=== PATIENT | female | born 1965 | race Caucasian/White ===

== ENCOUNTER 2018-06-20 13:14 | Inpatient (IN) | payer BC ==
--- NOTE | 2018-06-12 12:38 | HP ---
HISTORY AND PHYSICAL: DATE OF ADMISSION/SURGERY: 06/20/18 DATE OF OFFICE VISIT: 06/12/18 SURGEON: Nichole Suarez MD * (DICTATED BY ALYSE DO) PROCEDURE: Right total knee arthroplasty. CHIEF COMPLAINT: Right knee pain. HISTORY OF PRESENT ILLNESS: Ms. Fernandez is a 52-year-old female with continued complaints of right knee pain. She has failed conservative treatment and elected to proceed with a right total knee arthroplasty. PAST MEDICAL HISTORY: 1. Hypothyroidism. 2. High cholesterol. 3. GERD. 4. Sleep apnea. PAST SURGICAL HISTORY: 1. Appendectomy. 2. Hysterectomy. 3. Right shoulder arthroscopy. 4. Left knee scope. CURRENT MEDICATIONS: 1. Levothyroxine 112 mcg a day. 2. Pantoprazole sodium 40 mg a day. 3. Vitamin C. 4. MiraLAX. 5. Metamucil. 6. Vitamin D. 7. CBD oil. ALLERGIES: To MORPHINE causing muscle spasms; FLAGYL; HYDROCODONE, unknown reaction; SULFA ANTIBIOTICS; AMOXICILLIN. FAMILY HISTORY: Coronary artery disease, cancer, and diabetes. SOCIAL HISTORY: She is a 52-year-old female. She lives with her . She does not smoke or use drugs. Uses occasional alcohol. REVIEW OF SYSTEMS: A complete 14-point review of systems was reviewed with the patient. It was positive for GERD, hypothyroidism, and occasional palpitations. She denies history of DVT, PE, hepatitis, HIV, or anesthesia problems. PHYSICAL EXAMINATION GENERAL: She is well developed, well nourished, in no acute distress. VITAL SIGNS: She stands 5 feet 6 inches tall, weighs 258 pounds. Her blood pressure is 146/84, heart rate 68. HEENT: Normocephalic, atraumatic. NECK: Supple. No palpable lymph nodes. PULMONARY: The lungs are clear to auscultation bilaterally. CARDIO: Regular rate and rhythm. Strong S1, S2. ABDOMEN: Soft, nontender, nondistended. NEUROLOGICAL: She is alert and oriented x3. MUSCULOSKELETAL: Right lower extremity, the skin is intact. There are no open wounds or abrasions. There is moderate joint effusion of the right knee. She has some tenderness along the medial and lateral joint line. Range of motion is 10 to 100 degrees of flexion with patellofemoral crepitus. There is some significant MCL laxity. Her calf is soft and nontender. She is able to dorsiflex and plantarflex. Has a 2+ dorsalis pedis pulse. ASSESSMENT AND PLAN: Ms. Fernandez is a 52-year-old female with end-stage osteoarthritis of the right knee. She has failed conservative treatment and elected to proceed with a right total knee arthroplasty. The surgery is scheduled for 06/20/[address] Suarez discussed the risks and benefits of the surgery at today's visit and all of her questions were answered. She will follow with Dr. Suarez 2 weeks after the surgery. ALYSE DO [id number]/[facility] #: [id number] MTDD
[~2018-06-20 13:14] MED LIST: Acetaminophen IV 1GM/100ML * 1,000 MG/100 ML VIAL IVPB ONE; Buffered Lidocaine 1% SYRIN* 1 ML/SYRINGE INTRADERM ONE; Dexamethasone IV* 4 MG/ML 1 ML (4 MG) IV SLOW PU ONE; Gabapentin CAP(*) 300 MG PO ONE; Lactated Ringers 1000 ML Bag* 1,000 ML IV SCH; Tranexamic Acid 1,000 MG in NS 0.9% 50 ML* (outpatient use) IV SCH; celeCOXIB CAP* 200 MG PO ONE
--- OUTSIDE RECORDS SUMMARY | 2018-06-20 13:19 | XMS REPORT | Continuity of Care Document ---
:1965 External Reference #:[id number] Author Name Ida Webb Care Team Providers Name Role Phone Patient's Choice Primary Care Physician Unavailable Payers Date Identification Numbers Payment Provider Subscriber Effective: 2017 Policy Number: [id number] BS Facets Bebeto Hardwick PayID: [id number] [address] [address] [place] [address] Advance Directives Description No Information Available Problems Date Description Provider Status Onset: 05/07/2017 Localized, primary osteoarthritis Nichole Suarez M.D. Active Family History Date Family Member(s) Observation Comments General Diabetes General Heart Disease General Hypertension General Stroke General Cancer General Rheumatoid Arthritis Social History Type Date Description Comments Sex Unknown Lives With Spouse Occupation hairdresser ETOH Use Denies alcohol use Tobacco Use Start: Unknown Patient has never smoked Smoking Status Reviewed: 06/12/18 Patient has never smoked Exercise Type/Frequency Exercises sporadically Allergies, Adverse Reactions, Alerts Date Description Reaction Status Severity Comments 05/07/2017 Morphine Active 05/07/2017 Flagyl Active 05/07/2017 Hydrocodone Active 05/07/2017 Sulfa Antibiotics Active 05/07/2017 Amoxicillin Active Medications Medication Date Status Form Strength Qnty SIG Indications Ordering Provider Levothyroxine Active Tablets 112mcg 1 by Unknown Sodium 000 mouth every day Pantoprazole Active Solution 40mg 1 by Unknown Sodium 000 Rec mouth every day Vitamin C Active Unknown 000 Miralax Active Unknown 000 Metamucil Active Unknown 000 Vitamin D Active Unknown 000 CBD Oil Active Unknown 000 Meloxicam Hx Tablets 15mg 90tabs take 1 M25.561 Nichole 018 - tablet Erick, by [facility] 019 once daily Medications Administered in Office Medication Date Status Form Strength Qnty SIG Indications Ordering Provider Depomedrol Administered Injection Nichole 40MG 018 Charly Suarez Depomedrol Administered Injection Nichole 40MG 018 Charly Suarez Depomedrol Administered Injection Nichole 40MG 018 Chalry Suarez Depomedrol Administered Injection Nichole 40MG 018 Charly Suarez Immunizations Description No Information Available Vital Signs Date Vital Result Comment 06/12/2018 10:25am Height 66.5 inches 5'6.50" Weight 258.00 lb Heart Rate 68 /min BP Systolic 146 mmHg BP Diastolic 84 mmHg BMI (Body Mass Index) 41.0 kg/m2 05/27/2018 8:44am Height 66.5 inches 5'6.50" Weight 255.00 lb Heart Rate 64 /min BP Systolic 140 mmHg BP Diastolic 90 mmHg BMI (Body Mass Index) 40.5 kg/m2 03/18/2018 3:33pm Height 66.5 inches 5'6.50" Heart Rate 70 /min BP Systolic 130 mmHg BP Diastolic 80 mmHg Respiratory Rate 18 /min Pain Level 4 12/21/2017 9:25am Height 66.5 inches 5'6.50" Heart Rate 76 /min BP Systolic 128 mmHg BP Diastolic 72 mmHg Respiratory Rate 18 /min Body Temperature 98.0 F Pain Level 7 09/12/2017 11:04am Height 66.5 inches 5'6.50" Weight 259.00 lb Heart Rate 64 /min BP Systolic Sitting 124 mmHg BP Diastolic Sitting 76 mmHg Respiratory Rate 16 /min Pain Level 2 BMI (Body Mass Index) 41.2 kg/m2 06/11/2017 3:39pm Height 66.5 inches 5'6.50" Weight 261.00 lb BP Systolic 150 mmHg BP Diastolic 86 mmHg Body Temperature 98.2 F Pain Level 2 BMI (Body Mass Index) 41.5 kg/m2 05/07/2017 10:45am Height 66.5 inches 5'6.50" Weight 261.00 lb Heart Rate 76 /min BP Systolic 160 mmHg BP Diastolic 90 mmHg Body Temperature 97.4 F BMI (Body Mass Index) 41.5 kg/m2 Results Test Date Facility Test Result H/L Range Note Inr/Protime 06/12/2018 [facility] Inr 0.94 N 0.77-1.[address] [place] [address] [phone] Laboratory test 06/12/2018 [facility] Partial 33.4 seconds N 26.0-36.[address] [place] [address] PTT [phone] CBC Auto Diff 06/12/2018 [facility] White Blood 7.7 10^3/uL N 3.5-10.8 [place] [address] [phone] Red Blood Count 4.60 10^6/uL N 4.00-5.40 Hemoglobin 12.8 g/dL N 12.0-16.0 Hematocrit 38 % N 35-47 Mean Corpuscular Volume 83 fL N 80-97 Mean Corpuscular Hemoglobin 28 pg N 27-31 Mean Corpuscular HGB Conc 33 g/dL N 31-36 Red Cell Distribution Width 14 % N 10.5-15 Platelet Count 339 10^3/uL N 150-450 Mean Platelet Volume 7.8 fL N 7.4-10.4 Abs Neutrophils 4.8 10^3/uL N 1.5-7.7 Abs Lymphocytes 2.2 10^3/uL N 1.0-4.8 Abs Monocytes 0.5 10^3/uL N 0-0.8 Abs Eosinophils 0.1 10^3/uL N 0-0.6 Abs Basophils 0.1 10^3/uL N 0-0.2 Abs Nucleated RBC 0 10^3/uL Granulocyte % 62.8 % Lymphocyte % 28.3 % Monocyte % 6.7 % Eosinophil % 1.5 % Basophil % 0.7 % Nucleated Red Blood Cells % 0 Urinalysis Profile 06/12/2018 [facility] Urine Color Yellow [address] [place] [address] [phone] Urine Appearance Clear Urine Specific [place] 1.006 Low 1.010-1.030 Urine pH 6.0 N 5-9 Urine Urobilinogen Negative Negative Urine Ketones Negative Negative Urine Protein Negative Negative Urine Leukocytes Negative Negative Urine Blood Negative Negative * * Abnormal Negative 1 Urine Nitrite Negative Negative Urine Bilirubin Negative Negative Urine Glucose Negative Negative Comp Metabolic Panel 06/12/2018 [facility] Sodium 142 mmol/L N 135-[address] [place] [address] [phone] Potassium 4.0 mmol/L N 3.5-5.0 Chloride 105 mmol/L N 101-111 Co2 Carbon Dioxide 31 mmol/L N 22-32 Anion Gap 6 mmol/L N 2-11 Glucose 96 mg/dL N 70-100 Blood Urea Nitrogen 9 mg/dL N 6-24 Creatinine 0.69 mg/dL N 0.51-0.95 BUN/Creatinine Ratio 13.0 N 8-20 Calcium 9.8 mg/dL N 8.6-10.3 Total Protein 6.9 g/dL N 6.4-8.9 Albumin 4.5 g/dL N 3.2-5.2 Globulin 2.4 g/dL N 2-4 Albumin/Globulin Ratio 1.9 N 1-3 Total Bilirubin 0.30 mg/dL N 0.2-1.0 Alkaline Phosphatase 58 U/L N 34-104 Alt 18 U/L N 7-52 Ast 14 U/L N 13-39 Egfr Non- 90.1 >60 Egfr 109.0 >60 2 Type & Screen 06/12/2018 [facility] Patient Blood Type O Positive [address] [place] [address] [phone] Antibody Screen NEGATIVE Urine Culture And 06/12/2018 [facility] Urine Culture SEE RESULT [address] [place] [address] [phone] 1 *Ascorbic acid is present which may interfere with detection of blood. 2 Because ethnic data is not always readily available, this report includes an eGFR for both -Americans and non- Americans. The National Kidney Disease Education Program (NKDEP) does not endorse the use of the MDRD equation for patients that are not between the ages of 18 and 70, are , have extremes of body size, muscle mass, or nutritional status, or are non- or non-. According to the National Kidney Foundation, irrespective of diagnosis, the stage of the disease is based on the level of kidney function: Stage Description GFR(mL/min/1.73 m(2)) 1 Kidney damage with normal or decreased GFR 90 2 Kidney damage with mild decrease in GFR 60-89 3 Moderate decrease in GFR 30-59 4 Severe decrease in GFR 15-29 5 Kidney failure <15 (or dialysis) 3 SEE RESULT BELOW Name: RAFFY FERNANDEZ : [address]: Nichole Suarez MD Acct: [id number] Unit: [id number] AGE: 52 Location: [facility] Re06/12/18 SEX: F Status: REG REF SPEC: [id number] ARNEL: 06/12/[address] [facility] [address]: Nichole Suarez MD REQ: [id number] RECD: 06/12/18 STATUS: COMP _ SOURCE: URINE SPDESC: ORDERED: Urine Culture QUERIES: Urine Source: Clean Catch Procedure Result Reported Site Urine Culture Final 06/13/18- 1229 ML No growth of clinically significant organisms * ML - Main Lab . END OF REPORT DEPARTMENT OF PATHOLOGY, [address] [place] [address] Peng Hilario M.D. Director [facility] # [id number] Procedures Date Code Description Status 03/18/201850877 Inject/Drain Joint/Bursa Major W/O US Completed 12/21/201737411 Inject/Drain Joint/Bursa Major W/O US Completed 09/12/201783195 Inject/Drain Joint/Bursa Major W/O US Completed 06/11/201714218 Inject/Drain Joint/Bursa Major W/O US Completed Encounters Type Date Location Provider Dx Diagnosis Office Visit 05/27/2018 [facility] Nichole Suarez, M25.562 Pain in left knee 8:30a [facility] M25.561 Pain in right knee M25.462 Effusion, left knee M25.461 Effusion, right knee M17.0 Bilateral primary osteoarthritis of knee M21.062 Valgus deformity, not elsewhere classified, left knee M21.061 Valgus deformity, not elsewhere classified, right knee Office Visit 06/11/2017 3:30p Orthopedic Nichole M17.0 Bilateral primary [facility] oste[facility] knee M21.061 Valgus deformity, not elsewhere classified, right knee M21.062 Valgus deformity, not elsewhere classified, left knee M25.461 Effusion, right knee M25.462 Effusion, left knee Office Visit 05/07/2017 9:00a Orthopedic Nichole M17.0 Bilateral primary [facility] osteoarthritis of [facility] knee M21.061 Valgus deformity, not elsewhere classified, right knee M21.062 Valgus deformity, not elsewhere classified, left knee M25.461 Effusion, right knee M25.462 Effusion, left knee E66.01 Morbid (severe) obesity due to excess calories Plan of Treatment Future Appointment(s):07/01/2018 1:00 pm - Nichole Suarez M.D. at [facility].06/20/2018 5:00 pm - UDAY Hamilton at [facility].06/20/2018 5:00 pm - ALYSE Doshi at [facility].06/20/2018 5:00 pm - Nichole Suarez M.D. at [facility]06/12/2018 - Nichole Suarez M.D.M25.562 Pain in left kneeFollow up:Follow up: 2 weeks after [id number] Effusion, right kneeM17.0 Bilateral primary osteoarthritis of kneeM21.061 Valgus deformity, not elsewhere classified, right knee
--- OUTSIDE RECORDS SUMMARY | 2018-06-20 13:19 | XMS REPORT | Continuity of Care Document ---
:1965 External Reference #:[id number] Author Name Faith Gardner Care Team Providers Name Role Phone Patient's Choice Primary Care Physician Unavailable Payers Date Identification Numbers Payment Provider Subscriber Effective: 2017 Policy Number: [id number] [employer] Bebeto Hardwick PayID: [id number] [address] [address] [place] [address] Advance Directives Description No Information Available Problems [...] BMI (Body Mass Index) 41.5 kg/m2 Results Description No Information Available Procedures Date Code Description Status 03/18/2018 Inject/Drain Joint/Bursa Major W/O US Completed 12/21/2017 Inject/Drain Joint/Bursa Major W/O US Completed 09/12/2017 Inject/Drain Joint/Bursa Major W/O US Completed 06/11/2017 Inject/Drain Joint/Bursa Major W/O US Completed Encounters Type Date Location Provider Dx Diagnosis Office Visit 05/27/2018 [facility]opedic Nichole Suarez, M25.562 Pain in left knee 8:30a [facility] M25.561 Pain in right knee M25.462 [...] Nichole Suarez M.D. at [facility]06/20/2018 5:00 pm - UDAY Hamilton at [facility]06/20/2018 5:00 pm - ALYSE Doshi at [facility]06/20/2018 5:00 pm - Nich[facility] Suarez [facility]2018 - Nichole Suarez M.D.M25.562 Pain in left kneeFollow up:Follow up: 2 weeks after [id number] Effusion, right kneeM17.0 Bilateral primary osteoarthritis of kneeM21.061 Valgus deformity, not elsewhere classified, right knee
[2018-06-20] MEDS ORDERED: KETAMINE HCL* 50 MG/ML 10 ML VIAL ONE (13:29)
[2018-06-20] MEDS ORDERED: Propofol* 10 MG/ML 20 ML BTL ONE (13:29)
[2018-06-20] MEDS ORDERED: fentaNYL* 50 MCG/ML 2 ML VIAL (100 MCG VIAL) ONE (13:29)
[2018-06-20] MEDS ORDERED: Ondansetron INJ* 2 MG/ML VIAL ONE (13:29)
[2018-06-20] MEDS ORDERED: Midazolam* 1 MG/ML 5 ML VIAL (5 MG) ONE (13:29)
[2018-06-20] MEDS ORDERED: Gabapentin CAP(*) 300 MG ONE (13:54)
[2018-06-20] MEDS ORDERED: Dexamethasone IV* 4 MG/ML 1 ML (4 MG) ONE (13:54)
[2018-06-20] MEDS ORDERED: celeCOXIB CAP* 100 MG ONE (13:54)
[2018-06-20] MEDS ORDERED: Clindamycin 900 MG/D5W BAG(*) 900 MG/50 ML BAG IVPB ONE (13:54)
[2018-06-20] MEDS ORDERED: Buffered Lidocaine 1% SYRIN* 1 ML/SYRINGE INTRADERM ONE (13:55)
[2018-06-20] MEDS ORDERED: Acetaminophen IV 1GM/100ML * 100 ML ONE (14:16)
[2018-06-20] MEDS ORDERED: ROPIVACAINE 5 MG/ML 30 ML BTL (0.5%) ONE (14:45)
[2018-06-20] MEDS ORDERED: Bupivacaine 0.5%* 50 ML VIAL ONE (14:48)
[2018-06-20] MEDS ORDERED: Bupivacaine 0.5% SDV PF* 30ML VIAL ONE (14:50)
[2018-06-20] MEDS ORDERED: HYDROmorphone INJ1* 1 MG/ML SYRINGE IV PRN (17:19)
[2018-06-20] MEDS ORDERED: fentaNYL* 50 MCG/ML 2 ML VIAL (100 MCG VIAL) IV PRN (17:19)
[2018-06-20] MEDS ORDERED: DiMENhydriNATE IV* 50 MG/ML VIAL IV PUSH PRN (17:19)
[2018-06-20] MEDS ORDERED: Naloxone* 0.4 MG/ML 1 ML VIAL IV PRN (17:19)
[2018-06-20] MEDS ORDERED: Ondansetron INJ* 2 MG/ML VIAL IV PRN ×2 (17:19→18:01)
[2018-06-20] MEDS ORDERED: diPHENhydraMINE IV* 50 MG/ML 1 ml VIAL (BENADRYL) IV PRN (18:01)
[2018-06-20] MEDS ORDERED: Bisacodyl SUPP* 10 MG SUPP PR PRN (18:01)
[2018-06-20] MEDS ORDERED: Polyethylene Glycol 3350* 17 GM PACKET PO PRN (18:01)
[2018-06-20] MEDS ORDERED: Ondansetron TAB* 4 MG PO PRN (18:01)
[2018-06-20] MEDS ORDERED: Magnesium Hydroxide LIQ* 30 ML UDC PO PRN (18:01)
[2018-06-20] MEDS ORDERED: oxyCODONE/Acetamin 5/325 MG* TAB PO PRN (18:01)
[2018-06-20] MEDS ORDERED: HYDROmorphone INJ1* 1 MG/ML SYRINGE IV SLOW PU PRN (18:05)
[2018-06-20] MEDS ORDERED: Lactated Ringers 1000 ML Bag* 1,000 ML IV SCH (19:00)
[2018-06-20] MEDS: Acetaminophen TAB* 325 MG PO SCH (22:10)
[2018-06-20] MEDS: Docusate CAP* 100 MG PO SCH (22:14)
[2018-06-20] MEDS: Magnesium Hydroxide LIQ* 30 ML UDC PO SCH (22:14)
[2018-06-20] MEDS: Clindamycin 600 MG IVPREMIX(* 600 MG/50 ML SDV IV SCH (23:44)
[2018-06-20] MEDS: traMADol TAB* 50 MG PO PRN (23:47)
[2018-06-21] MEDS: oxyCODONE TAB* 5 MG TAB PO PRN ×2 (01:34→15:27)
[2018-06-21] MEDS: Cyclobenzaprine TAB* 10 MG PO PRN ×2 (01:34→10:17)
[2018-06-21] MEDS: oxyCODONE/Acetamin 5/325 MG* TAB PO PRN ×2 (03:27→08:04)
[2018-06-21] MEDS ORDERED: Levothyroxine TAB* 112 MCG TAB PO SCH (06:00)
[2018-06-21] MEDS: traMADol TAB* 50 MG PO PRN ×2 (06:21→12:25)
[2018-06-21 06:36] LABS: Hematocrit 38 % (35-47); Hemoglobin 12.6 g/dl (12.0-16.0); Mean Platelet Volume 7.9 fL (7.4-10.4); Platelet Count 324 10^3/ul (150-450)
[2018-06-21] MEDS: Acetaminophen TAB* 325 MG PO SCH ×2 (06:46→15:25)
[2018-06-21 06:57] LABS: Calcium 9.6 mg/dL (8.6-10.3); Potassium 3.8 mmol/L (3.5-5.0)
[2018-06-21 07:02] LABS: BUN/Creatinine Ratio 17.5 (8-20)
[2018-06-21] MEDS: Magnesium Hydroxide LIQ* 30 ML UDC PO SCH (07:44)
[2018-06-21] MEDS: Docusate CAP* 100 MG PO SCH (07:44)
[2018-06-21] MEDS: Clindamycin 600 MG IVPREMIX(* 600 MG/50 ML SDV IV SCH (07:59)
[2018-06-21] MEDS ORDERED: Pantoprazole TAB * 40 MG TAB PO SCH (09:00)
[2018-06-21] MEDS ORDERED: Apixaban* 2.5 MG TAB PO SCH (09:00)
--- NOTE | 2018-06-21 09:46 | OP ---
OPERATIVE REPORT: DATE OF OPERATION: 06/20/18 DATE OF : [birth year] ATTENDING SURGEON: Nichole Suarez MD. CHIEF DIETITIAN: ALYSE Prieto. Ms. Crane did help throughout the procedure with preparation of the leg, wound retraction, manipul ation of the knee, and wound closure. ANESTHESIOLOGIST: Dr. Martin. ANESTHESIA: Spinal. PRE-OP DIAGNOSIS: Severe end-stage degenerative osteoarthritis of the right knee joint with valgus d eformity. POST-OP DIAGNOSIS: Severe end-stage degenerative osteoarthritis of the right knee joint with valgus deformity. OPERATIVE PROCEDURE: Right total knee arthroplasty. TOURNIQUET TIME: 64 minutes. COMPLICATIONS: None. ESTIMATED BLOOD LOSS: 200 cc. SPECIMENS: Bone and cartilage from the right knee joint sent to Pathology. HARDWARE: This is cemented [employer] total knee arthroplasty hardware. Two packages of Simple x bone cement. For the femur, a size 5 right narrow Oxinium Legion posterior stabilized femoral comp onent. For the tibia, a size 3, right Michelle II tibial baseplate. For the insert, an 11-mm constra ined articular insert, size 3/4. For the patella, a 29-mm, 3-peg all-poly patella. BRIEF HISTORY/INDICATIONS: Ms. Fernandez is a 52-year-old female with years of increasingly severe righ t knee pain and valgus deformity. She developed instability in the knee due to MCL laxity. Radiogra ph showed [id number] arthritis. She failed conservative treatment with antiinflammatories, pain me dication, intra-articular injection, and physical therapy. Due to continued pain and decreased quali ty of life, she elected to undergo right total knee arthroplasty. Informed consent was obtained from the patient. She understood the risks of surgery included, but were not limited to, bleeding, infec tion, damage to nearby structures, continued pain, need for further surgery, intraoperative fracture, nerve palsy, hardware failure or loosening, knee stiffness, loss of motion, stroke, heart attack, bl ood clot, and . She wished to proceed. The patient understood because of her young age and mor bid obesity, she was at increased risk of early loosening. She accepted this risk. INTRAOPERATIVE FINDINGS: Intraoperatively, the patient was noted to have preop valgus deformity of 2 0 degrees. This was corrected by 13 degrees intraoperatively. The patient was noted to have a comple te loss of cartilage in the lateral and patellofemoral compartment. DESCRIPTION OF PROCEDURE: Ms. Fernandez was identified in the preanesthesia unit. Her right lower extre mity was marked as the correct operative site. Informed consent was signed and placed in the chart. The patient was taken to the operating room and placed under spinal anesthesia. A Mejía catheter wa s placed. Tourniquet was placed on the right thigh. Right lower extremity was prepped and draped in the usual sterile fashion. Preop time-out was made to correctly identify the patient's side and sit e. Appropriate perioperative antibiotics were given within 1 hour of incision. Tourniquet was inflated and total tourniquet time for this procedure was 64 minutes. A midline incis ion was made with a 10 blade and carried down to the extensor mechanism. New 10 blade was used to ma ke a standard medial parapatellar arthrotomy. The patella was subluxed laterally. The knee was flex ed up. The anterior horn of the lateral meniscus and ACL were sharply released. A drill was used to enter the distal femur. Intramedullary distal femoral cutting guide was pinned on the distal femur. Oscillating saw was used to make the distal femoral cut. Next, the external rotation guide was pin kristopher on the distal femur. Distal femur was sized to a size 5. Size 5 multi-cutting jig was pinned on the distal femur. Oscillating saw was used to make the appropriate 4 chamfer cuts. The tibia was subluxed anteriorly. The PCL was completely released. Extramedullary tibial cutting gu pedrito was pinned on the proximal tibia. Oscillating saw was used to make the proximal tibial cut perpe ndicular to the mechanical aspect of the tibia. The bone was carefully removed. The knee was tesha t out into full extension. There was some lateral ligamentous tightness. Electrocautery was used to release the posterolateral capsule. Pie-crusting technique was used to release some of the lateral ligament. Medial and lateral ligamentous balancing was much improved. Flexion and extension gaps w ere well balanced. The knee was flexed up. Lamina investment analyst was placed both medially and laterally. Any remaining meniscus was carefully removed using electrocautery. Curved osteotome was used to robin ve any posterior osteophytes. Tibial tray and drop carine were placed and once again confirmed a satisf actory tibial cut. A size 5 right narrow femoral trial was impacted onto the distal femur and had excellent fit and stab ility. The box for the posterior stabilized implant was prepared using a reamer and box-cut osteotom e. A size 3 tibial tray trial with an 11-mm insert trial was placed. The knee was taken through a r kathy of motion. The knee had full extension to 130 degrees of flexion with satisfactory patellofemor al tracking. The patella was everted. 9 mm of patellar bone and cartilage were carefully removed us ing an oscillating saw. The patella was sized to a size 29. Three-peg holes were drilled through the size 29 guide. A 29 trial patella was placed and the knee was taken through a range of motion. The re was satisfactory patellofemoral tracking. All trials were carefully removed. The tibia was sublu xed anteriorly and sized to a size 3. Proximal tibia was prepared using a size 3 keel punch. All lien ny cut surfaces were copiously irrigated with sterile saline and dried. Final implants were cemented into place starting with the tibia, followed by the femur, and last the patella. A 11-mm insert tri al was placed and the knee was brought out in full extension. Tourniquet was turned down at 64 minut es. Electrocautery was used to obtain meticulous hemostasis. The knee was copiously irrigated with sterile saline. Once the cement had fully cured, the insert trial was removed. Any excess cement was removed from ar ound the capsule and hardware. Final insert chosen was an 11-mm posterior stabilized articular inser t size 3-4. This was locked into position on the tibial tray. Stability of the insert was checked a nd rechecked and noted to be stable. The extensor mechanism was closed using interrupted #1 Vicryls. The rest of the incision was closed in a layered fashion using 0 and 2-0 Vicryls. Skin was closed using running 3-0 nylon suture. Sterile Xeroform, 4x4s, and Webril were used to cover the incision. Itz wrap and cold pack were placed over this. The patient's anesthesia was reversed without diffic ulty. She was taken to the PACU in stable condition. Intended weightbearing will be weightbearing a s tolerated. [id number]/[facility] #: [id number]
--- NOTE | 2018-06-21 13:01 | PN ---
Progress Note - Progress Note Date of Service: 06/21/18 SOAP: Subjective: []Patient seen OOB in chair. Having some nausea after pain med this am. No vomiting. Denies SOB, CP, palpitations. Did well with therapy. Hopes to still go home this afternoon. Objective: [] Vital Signs Temp 98.0 F 06/21/18 11:46 Pulse 59 06/21/18 11:46 Resp 18 06/21/18 12:25 BP 115/55 06/21/18 11:46 Pulse Ox 97 06/21/18 11:46 Intake & Output 06/20/18 06/21/18 06/21/18 18:59 06:59 18:59 Intake Total 1500 2100 1121 Output Total 1000 2050 500 Balance 500 50 621 Weight 252 lb 9.6 oz Intake: IV Fluids 1500 1121 ABX - CLINDAMYCIN 111 LR 1500 1010 IVPB 0 ABX - CLINDAMYCIN 0 Oral 2100 Output: Urine 500 Mejía 1000 0 Other: # Bowel Movements 1 Estimated Stool Amount Large Laboratory Results - last 24 hr 06/21/18 06/21/18 06:24 06:24 Hgb 12.6 Hct 38 Plt Count 324 MPV 7.9 Sodium 138 Potassium 3.8 Chloride 104 Carbon Dioxide 27 Anion Gap 7 BUN 11 Creatinine 0.63 Est GFR ( Amer) 121.0 Est GFR (Non-Af Amer) 100.0 BUN/Creatinine Ratio 17.5 Glucose 138 H Calcium 9.6 right knee dressings are dry and intact calf NT and soft +DF right ankle sensation and circulation intact Assessment: s/p right total knee arthroplasty POD #1 Plan: []PT/OT WBAT RLE Home this afternoon after PT session Eliquis 2.5 BID unless not covered by insurance, then may need to change to Lovenox Follow up 10-14 days as scheduled
[2018-06-21 16:30] VITALS: BP 117/94
--- NOTE | 2018-06-21 22:24 | DS ---
DISCHARGE SUMMARY: DATE OF ADMISSION: 06/20/18 DATE OF DISCHARGE: 06/21/18 ATTENDING PHYSICIAN: Dr. Nichole Suarez.* (DICTATED BY ALYSE PARADA) ADMISSION DIAGNOSIS: Severe end-stage degenerative osteoarthritis right knee with valgus deformity. DISCHARGE DIAGNOSES: Severe end-stage degenerative osteoarthritis right knee with valgus deformity. SURGERY PERFORMED: Right total knee arthroplasty. HOSPITAL COURSE: The patient is a 52-year-old female with years of increasingly severe right knee pain and valgus deformity. She developed instability with MCL laxity. Her x-rays revealed [id number] osteoarthritis. She failed conservative management with anti-inflammatories, pain medication, intraarticular cortisone injections, and physical therapy. Due to decreased quality of life and increased pain, she elected to proceed with right total knee arthroplasty. She was taken to the operating room under the care of Dr. Nichole Suarez on the date of 06/20/18 for the aforementioned procedure. She tolerated the procedure and left the operating room in stable condition. Postoperatively, she progressed satisfactorily with physical therapy and occupational therapy goals, bearing weight as tolerated on the right lower extremity. She had no postoperative complications and was found to be stable for discharge to home on the date of 06/21/18. CONDITION ON DISCHARGE: Temperature is 98, pulse 59, respiratory rate 16, O2 sats 97% on room air, blood pressure 115/55. Her knee was healing without evidence of infection. Her calf was soft and nontender. Her neurovascular status intact distally with the ability to actively dorsiflex the right ankle without pain. PLAN: She will be discharged to home on 06/21/18, bearing weight as tolerated on the right lower extremity. Her Eliquis prescribed in the hospital was unable to be covered by her insurance, therefore she was transitioned to Lovenox 40 mg subcu q.24 hours for 30 days postoperatively. She will use Percocet 5/325 one to two tablets p.o. q.4 hours p.r.n. pain, #70 with an MDD of 10. She was also prescribed Flexeril 10 mg p.o. t.i.d. as needed for muscle spasm. She will follow up in the office as scheduled with Dr. Suarez in roughly 10 to 14 days. All questions were answered. ALYSE PARADA [id number]/[facility] #: [id number] KERLINE
== END 2018-06-21 17:00 | disposition home or self-care (01) | DRG 302 ==
LOC: AA 13:14 → SSU 21:16
PROVIDERS: ADMIT Orthopaedic Surgery Adult Reconstructive Orthopaedic Surgery; ATTEND Orthopaedic Surgery Adult Reconstructive Orthopaedic Surgery
PROC: 0SRC069 Replacement of Right Knee Joint with Oxidized Zirconium on Polyethylene Synthetic Substitute, Cemented, Open Approach (ICD-10-PCS; principal; 2018-06-20 16:15)
DX: M17.11 Unilateral primary osteoarthritis, right knee (principal); Z68.41 Body mass index [BMI] 40.0-44.9, adult; M21.061 Valgus deformity, not elsewhere classified, right knee; E03.9 Hypothyroidism, unspecified; E78.00 Pure hypercholesterolemia, unspecified; K21.9 Gastro-esophageal reflux disease without esophagitis; G47.30 Sleep apnea, unspecified; M25.761 Osteophyte, right knee; M25.461 Effusion, right knee; E66.9 Obesity, unspecified; E04.2 Nontoxic multinodular goiter; Z90.710 Acquired absence of both cervix and uterus; Z88.5 Allergy status to narcotic agent; Z88.1 Allergy status to other antibiotic agents; Z88.2 Allergy status to sulfonamides; Z88.0 Allergy status to penicillin; Z82.49 Family history of ischemic heart disease and other diseases of the circulatory system; Z83.3 Family history of diabetes mellitus; Z72.89 Other problems related to lifestyle; Z87.891 Personal history of nicotine dependence; Z80.8 Family history of malignant neoplasm of other organs or systems; Z82.61 Family history of arthritis
CPT/HCPCS: 36415; 80048; 85014; 85018; 85049; A9270-GY; C1776; J1100; J1170; J2250; J2405; J2704; J2795; J3010

== ENCOUNTER 2018-11-24 10:57 | Emergency (ER) | payer BC ==
[2018-11-24 11:13] VITALS: BP 146/80
[2018-11-24] MEDS ORDERED: Ibuprofen TAB* 600 MG PO ONE (11:22)
--- NOTE | 2018-11-24 11:32 | UC ---
Shoulder Pain HPI - HPI Summary HPI Summary: 53 yo female CC lt shoulder pain. Started last PM after pulling a wagon with a grandchild in it. No specific trauma. Pain worst in the lt shoulder joint. Worse with ROM and palpation. Ibuprofen last PM helped some. No weakness, numbness. - History of Current Complaint Chief Complaint: UCUpperExtremity Stated Complaint: LT SHOULDER COMPLAINT Time Seen by Provider: 11/24/18 11:08 Hx Last Menstrual Period: N/A Pain Intensity: 7 - Allergies/Home Medications Allergies/Adverse Reactions: Allergies Allergy/AdvReac Type Severity Reaction Status Date / Time amoxicillin Allergy Unknown Verified 11/24/18 11:06 Reaction Details hydrocodone Allergy Unknown Verified 11/24/18 11:06 Reaction Details metronidazole [From Flagyl] Allergy Shortness Verified 11/24/18 11:06 of Breath morphine Allergy body Verified 11/24/18 11:06 tenses up SULFA DRUGS Allergy MOUTH SORES Uncoded 11/24/18 11:06 PMH/Surg Hx/FS Hx/Imm Hx Previously Healthy: Yes Endocrine History: Hypothyroidism - Surgical History Surgical History: Yes Surgery Procedure, Year, and Place: HYSTERECTOMY, BONE SPURS LT SHOULDER. RIGHT KNEE - Family History Known Family History: Positive: Non-Contributory - Social History Alcohol Use: Occasionally Substance Use Type: None Smoking Status (MU): Former Smoker Type: Cigarettes Amount Used/How Often: 1 PPD X 25 YEARS Length of Time of Smoking/Using Tobacco: about 20 years Have You Smoked in the Last Year: No When Did the Patient Quit Smoking/Using Tobacco: 2008 - Immunization History Most Recent Influenza Vaccination: NONE Most Recent Pneumonia Vaccination: HAS NOT HAD Review of Systems All Other Systems Reviewed And Are Negative: Yes Constitutional: Positive: Negative Skin: Positive: Negative Eyes: Positive: Negative ENT: Positive: Negative Respiratory: Positive: Negative Cardiovascular: Positive: Negative Gastrointestinal: Positive: Negative Motor: Positive: Other - see hpi Neurovascular: Positive: Negative Musculoskeletal: Positive: Other: - see hpi Neurological: Positive: Negative Psychological: Positive: Negative Is Patient Immunocompromised?: No Physical Exam Triage Information Reviewed: Yes Appearance: Well-Appearing, Well-Nourished, Pain Distress - Mild with lt ROM Vital Signs: Initial Vital Signs Temp 96.7 F 11/24/18 11:07 Pulse 62 11/24/18 11:07 Resp 16 11/24/18 11:07 BP 146/80 11/24/18 11:07 Pulse Ox 100 11/24/18 11:07 Vital Signs Reviewed: Yes Eye Exam: Normal Eyes: Positive: Conjunctiva Clear Neck: Positive: Supple, Nontender Respiratory: Positive: Lungs clear, Normal breath sounds, No respiratory distress Cardiovascular: Positive: RRR Musculoskeletal: Positive: Other: - Tender to palpation left shoulder joint. NL b/l radial pulses. NL sensation and cap refill b/l arms. Shoulder Extension Rt 150, Lt 80 Abduction Rt 90, Lt 70 Internal Rotation Rt T10, Lt L2 Neck FROM and NT Neurological: Positive: Alert Psychological: Positive: Age Appropriate Behavior Skin Exam: Normal Shoulder Course/Dx - Course Course Of Treatment: Patient Name: RAFFY XIONG Medical Record#: [id number] Ordering Physician: Toney Taylor MD Acct.#: [id number] : 1965 Age: 53 Sex: F [facility] Exam Date: 11/24/18 1122 ADM Status: REG ER Order Information: SHOULDER LEFT 2+ VWS Accession Number: [id number] CPT: 98017 Indication: LEFT shoulder pain for one day without known injury. Comparison: November 11, 2003 Technique: Internal rotation AP, external rotation Grashey, scapular Y, axillary views LEFT shoulder Report: #. Negative for fracture #. Normal acromioclavicular and glenohumeral joint alignment. #. Mild osteoarthritis at the acromioclavicular joint. #. Preserved glenohumeral joint space. #. Calcific tendinopathy at the level of the infraspinatus tendon. #. Unremarkable soft tissue contours. IMPRESSION: #. Mild AC joint osteoarthritis. #. Calcific tendinopathy of the infraspinatus tendon. <Electronically signed by Bruce Meeks MD in OV> 11/24/18 1150 I discussed the x-rays with the patient. Plan is NSAIDS, Ice, sling (with frequent ROM exercises which were demonstrated in clinic) and F/U with orthopedics or Sports Medicine. - Differential Dx/Diagnosis Provider Diagnosis: Left shoulder pain Discharge - Sign-Out/Discharge Documenting (check all that apply): Patient Departure All imaging exams completed and their final reports reviewed: Yes - Discharge Plan Condition: Stable Disposition: HOME Patient Education Materials: Shoulder Pain (ED) Forms: *Work Release Referrals: [facility] [Provider Group] Nichole Suarez MD [Medical Doctor] - Erick Whitaker MD [Medical Doctor] - Additional Instructions: FOLLOW UP WITH ORTHOPEDICS OR SPORTS MEDICINE. GET REEVALUATED SOONER IF WORSE OR ANY QUESTIONS OR CONCERNS. - Billing Disposition and Condition Condition: STABLE Disposition: Home
== END 2018-11-24 12:23 | disposition home or self-care (01) ==
LOC: UCCORT 10:57
DX: M25.512 Pain in left shoulder (principal); X50.0XXA Overexertion from strenuous movement or load, initial encounter; Y93.89 Activity, other specified; Y92.9 Unspecified place or not applicable; M19.012 Primary osteoarthritis, left shoulder; M75.32 Calcific tendinitis of left shoulder; Z88.5 Allergy status to narcotic agent; Z87.891 Personal history of nicotine dependence
CPT/HCPCS: 99213; A9270-GY; G0463

== ENCOUNTER 2019-01-02 15:15 | Emergency (ER) | payer BC ==
[2019-01-02 15:47] VITALS: BP 148/88
--- NOTE | 2019-01-02 15:54 | UC ---
Ear Complaint HPI - HPI Summary HPI Summary: 53-year-old female with a history of seasonal allergies who had an episode of dizziness like the room spinning today. Takes Claritin daily for her allergies but nothing else. She did not feel like she was going to pass out nor did she have any chest pain or difficulty breathing. She feels like she has pressure in her ears. - History of Current Complaint Chief Complaint: UCEar Stated Complaint: EAR PRESSURE Time Seen by Provider: 01/02/19 15:37 Hx Obtained From: Patient Hx Last Menstrual Period: N/A ?: No Onset/Duration: Gradual Onset Severity Initially: Mild Severity Currently: Mild Pain Intensity: 2 Aggravating Factors: Nothing Alleviating Factors: Nothing Related History: Seasonal Allergies - Allergies/Home Medications Allergies/Adverse Reactions: Allergies Allergy/AdvReac Type Severity Reaction Status Date / Time amoxicillin Allergy Unknown Verified 01/02/19 15:43 Reaction Details hydrocodone Allergy Unknown Verified 01/02/19 15:43 Reaction Details metronidazole [From Flagyl] Allergy Shortness Verified 01/02/19 15:43 of Breath morphine Allergy body Verified 01/02/19 15:43 tenses up SULFA DRUGS Allergy MOUTH SORES Uncoded 01/02/19 15:43 Home Medications: Home Medications Loratadine [Claritin] 10 mg PO DAILY 01/02/19 [History Confirmed 01/02/19] Naproxen Sodium [Aleve] 220 mg PO Q12HR PRN 01/02/19 [History Confirmed 01/02/19 ] PMH/Surg Hx/FS Hx/Imm Hx - Additional Past Medical History Additional PMH: History of arthritis Previously Healthy: Yes GI/ History: Gastroesophageal Reflux - Surgical History Surgical History: Yes Surgery Procedure, Year, and Place: HYSTERECTOMY, BONE SPURS LT SHOULDER. RIGHT KNEE - Family History Known Family History: Positive: Non-Contributory - Social History Alcohol Use: Occasionally Substance Use Type: None Smoking Status (MU): Former Smoker Type: Cigarettes Amount Used/How Often: 1 PPD X 25 YEARS Length of Time of Smoking/Using Tobacco: about 20 years Have You Smoked in the Last Year: No When Did the Patient Quit Smoking/Using Tobacco: 2008 - Immunization History Most Recent Influenza Vaccination: NONE Most Recent Pneumonia Vaccination: HAS NOT HAD Review of Systems All Other Systems Reviewed And Are Negative: Yes ENT: Positive: Other - A feeling of ear pressure Neurological: Positive: Other - Patient experienced dizziness one time today like the room spinning. She did not feel like she was going to pass out. Is Patient Immunocompromised?: No Physical Exam Triage Information Reviewed: Yes Appearance: Well-Appearing, No Pain Distress, Well-Nourished Vital Signs: Initial Vital Signs Temp 98.3 F 01/02/19 15:44 Pulse 69 01/02/19 15:44 Resp 16 01/02/19 15:44 BP 148/88 01/02/19 15:44 Pulse Ox 100 01/02/19 15:44 Vital Signs Reviewed: Yes Eyes: Positive: Conjunctiva Clear, Other: - PERLLA, EOMI, Negative eye drift ENT: Positive: Pharynx normal, Nasal drainage - Clear nasal coryza, TMs normal - The patient does have fluid behind the tympanic membranes the left worse than the right. Good landmarks and light reflex., Uvula midline Neck: Positive: Supple, Nontender, No Lymphadenopathy Respiratory: Positive: Lungs clear, Normal breath sounds, No respiratory distress, No accessory muscle use Cardiovascular: Positive: RRR, No Murmur, Pulses Normal, Brisk Capillary Refill Abdomen Description: Positive: Nontender, No Organomegaly, Soft. Negative: CVA Tenderness (R), CVA Tenderness (L) Bowel Sounds: Positive: Present Musculoskeletal Exam: Normal Musculoskeletal: Positive: Strength Intact, ROM Intact - Good arm and leg strength against resistance. Neurological: Positive: Alert, Muscle Tone Normal - Cranial nerves II through XII are intact, good finger to nose bilaterally, normal dystidiokinesis, good irkj-cq-berp bilaterally, Romberg negative, good heel-to-toe forward and backward. Psychological Exam: Normal Skin Exam: Normal Ear Complaint Course/Dx - Course Course Of Treatment: I believe at this time the patient may be experiencing vertigo almost from an allergic rhinitis and the fluid in her ears. She is to continue Claritin and start on Flonase 2 sprays in each nostril once a day for a week and then decrease to 1 spray in each nostril daily. She is to follow-up with her primary care provider if no improvement in 3 or 4 days. She is to go to emergency room if she develops any feeling like she is lightheaded and going to pass out. - Differential Dx/Diagnosis Provider Diagnosis: Allergic rhinitis Discharge ED - Sign-Out/Discharge Documenting (check all that apply): Patient Departure All imaging exams completed and their final reports reviewed: No Studies - Discharge Plan Condition: Good Disposition: HOME Prescriptions: Fluticasone NASAL SPRAY 50MCG* [Flonase NASAL SPRAY 50MCG*] 2 spray BOTH NARES DAILY 7 Days #1 btl Patient Education Materials: Allergic Rhinitis (DC) Referrals: No Primary Care Phys,NOPCP [Primary Care Provider] - [facility] [Outside] Additional Instructions: You can continue to take her Claritin. Follow-up with your primary care provider in for 5 days if no improvement. You may take meclizine as directed for vertigo if it continues. Go to the emergency room if you feel like you are going to pass out. - Billing Disposition and Condition Condition: GOOD Disposition: Home - Attestation Statements Provider Attestation: I was available for consult. This patient was seen by the ELLEN. The patient was not presented to, seen by, or examined by me. -Jamie
== END 2019-01-02 16:14 | disposition home or self-care (01) ==
LOC: UCEAST 15:15
DX: J30.9 Allergic rhinitis, unspecified (principal); Z88.0 Allergy status to penicillin; Z87.891 Personal history of nicotine dependence
CPT/HCPCS: 99212; G0463

== ENCOUNTER 2019-03-27 10:29 | Inpatient (IN) | payer BC ==
--- NOTE | 2019-03-20 11:12 | HP ---
HISTORY AND PHYSICAL: DATE OF SURGERY: 03/27/19 DATE OF OFFICE VISIT: 03/12/19 SURGEON: Nichole Suarez MD * (DICTATED BY ALYSE DO) PROCEDURE: Left total knee arthroplasty. CHIEF COMPLAINT: Left knee pain. HISTORY OF PRESENT ILLNESS: Ms. Fernandez is a 53-year-old female with severe left knee pain. She has failed conservative treatment, elected to proceed with a left total knee arthroplasty. PAST MEDICAL HISTORY: Hypothyroidism, GERD, and sleep apnea. PAST SURGICAL HISTORY: Right total knee arthroplasty, appendectomy, hysterectomy, left knee scope, and a left should scope. CURRENT MEDICATIONS: 1. Levothyroxine 112 mcg a day. 2. Pantoprazole 40 mg a day. 3. Vitamin C. 4. MiraLAX. 5. Metamucil. 6. Vitamin D. 7. CBD oil. 8. Tylenol as needed. ALLERGIES: MORPHINE, FLAGYL, HYDROCODONE, SULFA, and AMOXICILLIN. FAMILY HISTORY: Coronary artery disease, diabetes, cancer, and stroke. SOCIAL HISTORY: She is a 53-year-old female, she lives with her , she does not smoke or use drugs. REVIEW OF SYSTEMS: A complete 14-point review of systems was reviewed with the patient, is positive for hypothyroidism and GERD. She denies history of a DVT, PE, hepatitis, HIV, or anesthesia problems. PHYSICAL EXAMINATION GENERAL: She is well developed, well nourished, in no acute distress. VITAL SIGNS: She stands 5 feet 6 inches tall, weighs 269 pounds, blood pressure is 158/80, heart rate 60. HEENT: Normocephalic and atraumatic. NECK: Supple. No palpable lymph nodes. PULMONARY: Lungs are clear to auscultation bilaterally. CARDIO: Regular rate and rhythm. Strong S1, S2. ABDOMEN: Soft, nontender, and nondistended. NEUROLOGIC: She is alert and oriented x3. MUSCULOSKELETAL: Left lower extremity: The skin is intact. There is no open wounds or abrasions. There is a moderate effusion of the left knee joint. Range of motion is 5 to 120 degrees of flexion. There is a 15 degree valgus deformity. She has some tenderness along the medial and lateral joint line. There is also some MCL laxity on exam. She is able to dorsiflex and plantarflex. There is a 2+ dorsalis pedis pulse and intact sensation. ASSESSMENT AND PLAN: Ms. Fernandez is a 53-year-old female with severe end-stage osteoarthritis of the left knee. She has failed conservative treatment and elected to proceed with a left total knee arthroplasty. The surgery is scheduled for 03/27/[address] Suarez discussed the risks and benefits of the surgery at today's visit and all of her questions were answered. She will follow up with Dr. Suarez 2 weeks after the surgery. ALYSE DO [id number]/[facility] #: [id number] MTDTracie
[~2019-03-27 10:29] MED LIST changes: -Acetaminophen IV 1GM/100ML * 1,000 MG/100 ML VIAL IVPB ONE; +Acetaminophen TAB* 325 MG PO ONE; -Dexamethasone IV* 4 MG/ML 1 ML (4 MG) IV SLOW PU ONE; +Dexamethasone TAB* 4 MG PO ONE; +DiMENhydriNATE IV* 50 MG/ML VIAL IV PUSH PRN; +Famotidine IV* 10 MG/ML 2 ML (20 mg) IV ONE; +HYDROmorphone INJ1* 1 MG/ML SYRINGE IV PRN; +Naloxone* 0.4 MG/ML 1 ML VIAL IV PRN; +Ondansetron ODT TAB* 4 MG PO ONE; +PROCHLORPERAZINE INJ 5 MG/ML 2 ML VIAL IV PRN; +oxyCODONE TAB* 5 MG TAB PO PRN
--- OUTSIDE RECORDS SUMMARY | 2019-03-27 10:36 | XMS REPORT | Continuity of Care Document ---
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 Onset: 05/07/2017 Social History Type Date Description Comments Sex Unknown ETOH Use Denies alcohol use Tobacco Use Start: Unknown Patient has never smoked Smoking Status Reviewed: 03/12/19 Patient has never smoked Exercise Type/Frequency Exercises sporadically Allergies, Adverse Reactions, Alerts Active Allergies Reaction Severity Comments Date Morphine 05/07/2017 Flagyl 05/07/2017 Hydrocodone 05/07/2017 Sulfa Antibiotics 05/07/2017 Amoxicillin 05/07/2017 Medications Active Medications SIG Qnty Indications Ordering Provider Date Levothyroxine Sodium 1 by mouth Unknown 112mcg every day Tablets Pantoprazole Sodium 1 by mouth Unknown 40mg every day Solution Rec Vitamin C Unknown Miralax Unknown Metamucil Unknown Vitamin D Unknown CBD Oil Unknown Meloxicam 1 by mouth Unknown 7.5mg Tablets every day Medications Administered in Office Medication SIG Qnty Indications Ordering Provider Date Depomedrol 40MG Nichole Suarez M.D. 01/06/2019 Injection Depomedrol 40MG Nichole Suarez M.D. 10/07/2018 Injection Depomedrol 40MG Nichole Suarez M.D. 07/01/2018 Injection Depomedrol 40MG Nichole Suarez M.D. 03/18/2018 Injection Depomedrol 40MG Nichole Suarez M.D. 12/21/2017 Injection Depomedrol 40MG Nichole Suarez M.D. 09/12/2017 Injection Depomedrol 40MG Nichole Suarez M.D. 06/11/2017 Injection Immunizations Description No Information Available Vital Signs Date Vital Result Comment 03/12/2019 9:59am Height 66.5 inches 5'6.50" Weight 269.00 lb Heart Rate 60 /min BP Systolic 158 mmHg BP Diastolic 80 mmHg Pain Level 2 BMI (Body Mass Index) 42.8 kg/m2 01/06/2019 4:03pm Height 66.5 inches 5'6.50" Weight 250.00 lb Heart Rate 68 /min BP Systolic 160 mmHg BP Diastolic 80 mmHg Respiratory Rate 14 /min Pain Level 4 BMI (Body Mass Index) 39.7 kg/m2 Results Test Acquired Date Facility Test Result H/L Range Note Urinalysis Profile 03/14/2019 [facility] Urine Color Straw [address] [place] [address] [phone] Urine Appearance Clear Urine Specific [place] 1.004 Low 1.010-1.030 Urine pH 8.0 Normal 5-9 Urine Urobilinogen Negative Negative Urine Ketones Negative Negative Urine Protein Negative Negative Urine Leukocytes Negative Negative Urine Blood Negative Negative Urine Nitrite Negative Negative Urine Bilirubin Negative Negative Urine Glucose Negative Negative CBC Auto 03/14/2019 [facility] White Blood 6.6 10^3/uL Normal 3.5-10.[address] [place] [address] [phone] Red Blood Count 4.52 10^6/uL Normal 3.70-4.87 Hemoglobin 12.6 g/dL Normal 12.0-16.0 Hematocrit 37 % Normal 35-47 Mean Corpuscular Volume 81 fL Normal 80-97 Mean Corpuscular Hemoglobin 28 pg Normal 27-31 Mean Corpuscular HGB Conc 34 g/dL Normal 31-36 Red Cell Distribution Width 15 % Normal 10-15 Platelet Count 345 10^3/uL Normal 150-450 Mean Platelet Volume 8.3 fL Normal 7.4-10.4 Abs Neutrophils 4.3 10^3/uL Normal 1.5-7.7 Abs Lymphocytes 1.7 10^3/uL Normal 1.0-4.8 Abs Monocytes 0.5 10^3/uL Normal 0-0.8 Abs Eosinophils 0.1 10^3/uL Normal 0-0.6 Abs Basophils 0.0 10^3/uL Normal 0-0.2 Abs Nucleated RBC 0.0 10^3/uL Granulocyte % 64.7 % Lymphocyte % 25.9 % Monocyte % 7.7 % Eosinophil % 1.0 % Basophil % 0.7 % Nucleated Red Blood Cells % 0.1 Type & Screen 03/14/2019 [facility] Patient Blood Type O Positive [address] [place] [address] [phone] Antibody Screen NEGATIVE Inr/Protime 03/14/2019 [facility] Inr 1.02 Normal 0.82-1.[address] [place] [address] [phone] Laboratory test 03/14/2019 [facility] Partial 37.6 Normal 26.0 -38.[address] [place] [address] Time PTT [phone] Comp Metabolic 03/14/2019 [facility] Sodium 140 mmol/L Normal 135-[address] [place] [address] [phone] Potassium 3.9 mmol/L Normal 3.5-5.0 Chloride 106 mmol/L Normal 101-111 Co2 Carbon Dioxide 28 mmol/L Normal 22-32 Anion Gap 6 mmol/L Normal 2-11 Glucose 79 mg/dL Normal 70-100 Blood Urea Nitrogen 10 mg/dL Normal 6-24 Creatinine 0.59 mg/dL Normal 0.51-0.95 BUN/Creatinine Ratio 16.9 Normal 8-20 Calcium 9.7 mg/dL Normal 8.6-10.3 Total Protein 6.4 g/dL Normal 6.4-8.9 Albumin 4.4 g/dL Normal 3.2-5.2 Globulin 2.0 g/dL Normal 2-4 Albumin/Globulin Ratio 2.2 Normal 1-3 Total Bilirubin 0.30 mg/dL Normal 0.2-1.0 Alkaline Phosphatase 61 U/L Normal 34-104 Alt 17 U/L Normal 7-52 Ast 14 U/L Normal 13-39 Egfr Non- 107.5 >60 Egfr 130.0 >60 2 Urine Culture And 03/14/2019 [facility] Urine Culture SEE RESULT [address] [place] [address] [phone] 1 Standard intensity warfarin therapeutic range: 2.0-3.0 High intensity warfarin therapeutic range: 2.5-3.5 2 Because ethnic data is not always [...] [address]: Nichole Suarez MD Acct: [id number] Unit: [id number] AGE: 53 Location: [facility] Re03/14/19 SEX: F Status: REG REF SPEC: [id number] ARNEL: 03/14/190957 [facility] DR: Nichole Suarez MD REQ: [id number] RECD: 03/14/19 STATUS: COMP _ SOURCE: URINE SPDESC: ORDERED: Urine Culture QUERIES: Urine Source: Clean Catch Procedure Result Reported Site Urine Culture Final 03/15/19- 1042 ML No Growth (<1,000 CFU/mL) * ML - Main Lab . END OF REPORT DEPARTMENT OF PATHOLOGY, [address] [place] [address] Peng Hilario M.D. Director [facility] # [id number] Procedures Date Code Description Status 01/06/2019 Inject/Drain Joint/Bursa Major W/O US Completed 10/07/2018 Inject/Drain Joint/Bursa Major W/O US Completed Medical Devices Description No Information Available Encounters Type Date Location Provider Dx Diagnosis Office Visit 01/06/2019 [facility] Nichole Suarez, M25.562 [facility] Eff[facility], left knee M17.12 Unilateral primary osteoarthritis, left knee Assessments Date Code Description Provider 03/12/2019 M25.562 Pain in left knee NicholeKristy Portillo.DElsa 03/12/2019 M25.462 Effusion, left knee NicholeDallas PortilloDElsa 03/12/2019 M17.12 Unilateral primary osteoarthritis, left knee Nichole Dallas SuarezDElsa 02/20/2019 M25.562 Pain in left knee Nichole Kristy Suarez.DElsa 02/20/2019 M25.462 Effusion, left knee Nichole Erick, M.DElsa 02/20/2019 M17.12 Unilateral primary osteoarthritis, left knee Nicholecate Suarez M.D. 01/06/2019 M25.562 Pain in left knee Nichole Erick M.DElsa 01/06/2019 M25.462 Effusion, left knee Nichole Kristy Suarez.DElsa 01/06/2019 M17.12 Unilateral primary osteoarthritis, left knee Nichole Suarez M.D. 10/07/2018 M25.562 Pain in left knee Nichole Eirck M.DElsa 10/07/2018 M17.12 Unilateral primary osteoarthritis, left knee Nichole Suarez M.D. Plan of Treatment Future Appointment(s):04/14/2019 11:30 am - Nichole Suarez M.D. at [facility] at Nybtyf4903/27/2019 2:30 pm - [facility] 2:30 pm - ALYSE Doshi at [facility] at Gktfti6103/27/2019 2:30 pm - Nichole Suarez M.D. at [facility] at Edljza9503/12/2019 - Nichole Suarez M.D.M25.562 Pain in left kneeFollow up:Follow up: 2 weeks after zxtgapnO27.462 Effusion, left kneeM17.12 Unilateral primary osteoarthritis, left kneeNew Therapy:Physical Therapy Functional Status Description No Information Available Mental Status Description No Information Available Referrals Description No Information Available
--- OUTSIDE RECORDS SUMMARY | 2019-03-27 10:36 | XMS REPORT | Continuity of Care Document ---
:1965 External Reference #:[id number] Author Name Nichole Suarez M.D. (transmitted by agent of provider Shabnam Lemon) Address [address] [place] [id number] Care Team Providers Name Role Phone Patient's Choice Care Team Information [employer] Unavailable Problems Active Problems Provider Date Localized, [...] BMI (Body Mass Index) 39.7 kg/m2 Results Description No Information Available Procedures Date Code Description Status 01/06/2019 85541 Inject/Drain Joint/Bursa Major W/O US Completed 10/07/2018 48501 Inject/Drain Joint/Bursa Major W/O US Completed Medical Devices Description No Information Available Encounters Type Date Location Provider Dx Diagnosis Office Visit 01/06/2019 [facility] Nichole Suarez, M25.562 Pain in left knee 3:15p at [place] [facility] M25.462 Effusion, left knee M17.12 Unilateral primary osteoarthritis, left knee Assessments Date Code Description Provider 03/12/2019 M25.562 Pain in left knee Nichole Suarez M.D. 03/12/2019 M25.462 Effusion, left knee Nichole Suarez M.D. 03/12/2019 M17.12 Unilateral primary osteoarthritis, left knee Nichole Suarez M.D. 02/20/2019 M25.562 Pain in left knee Nichole Suarez M.D. 02/20/2019 M25.462 Effusion, left knee Nichole Suarez M.D. 02/20/2019 M17.12 Unilateral primary osteoarthritis, left knee Nichole Suarez M.D. 01/06/2019 M25.562 Pain in left knee Nichole Suarez M.D. 01/06/2019 M25.462 Effusion, left knee Nichole Suarez M.D. 01/06/2019 M17.12 Unilateral primary osteoarthritis, left knee Nichole Suarez M.D. 10/07/2018 M25.562 Pain in left knee Nichole Suarez M.D. 10/07/2018 M17.12 Unilateral primary osteoarthritis, left knee Nichole Suarez M.D. 09/13/2018 Z47.1 Aftercare following joint replacement surgery Nichole Suarez M.D. 09/13/2018 Z96.651 Presence of right artificial knee joint Nichole Suarez M.D. Plan of Treatment Future Appointment(s):04/14/2019 11:30 am - Nichole Suarez M.D. at [facility] at [place]/27/2019 2:30 pm - UDAY Higginbotham at [facility] at [place]/27/2019 2:30 pm - ALYSE Doshi at [facility] at [place]/27/2019 2:30 pm - Nichole Suarez M.D. at [facility] at [place]/12/2019 - Nichole Suarez M.D.M25.562 Pain in left kneeNew Xrays:Knee 3 Views LT, Ordered: 03/12/19Follow up:Follow up: 2 weeks after [id number] Effusion, left kneeM17.12 Unilateral primary osteoarthritis , left knee Functional Status Description No Information Available Mental Status Description No Information Available Referrals Description No Information Available
[2019-03-27] MEDS ORDERED: fentaNYL* 50 MCG/ML 2 ML VIAL (100 MCG VIAL) ONE ×2 (11:04→15:48)
[2019-03-27] MEDS ORDERED: Midazolam* 1 MG/ML 10 ML VIAL (10 MG) ONE (11:04)
[2019-03-27] MEDS ORDERED: KETAMINE HCL* 50 MG/ML 10 ML VIAL ONE (11:04)
[2019-03-27] MEDS ORDERED: Gabapentin CAP(*) 300 MG ONE (11:08)
[2019-03-27] MEDS ORDERED: Ondansetron ODT TAB* 4 MG ONE (11:08)
[2019-03-27] MEDS ORDERED: Dexamethasone TAB* 4 MG ONE (11:08)
[2019-03-27] MEDS ORDERED: celeCOXIB CAP* 200 MG ONE (11:08)
[2019-03-27] MEDS ORDERED: Acetaminophen TAB* 325 MG ONE (11:08)
[2019-03-27] MEDS ORDERED: ceFAZolin 2 GM in NS PREMIX(*) 2 GM/100 ML BAG IVPB ONE (11:09)
[2019-03-27] MEDS ORDERED: Famotidine IV* 10 MG/ML 2 ML (20 mg) ONE (11:09)
[2019-03-27] MEDS ORDERED: ROPIVACAINE 5 MG/ML 30 ML BTL (0.5%) ONE ×3 (13:08→14:19)
[2019-03-27] MEDS ORDERED: ceFAZolin 1 GM ADVAN(*) 1 GM ADDV.VIAL IVPB ONE (13:17)
[2019-03-27] MEDS ORDERED: Bupivacaine 0.5% SDV PF* 30ML VIAL ONE (14:19)
[2019-03-27] MEDS ORDERED: Propofol* 1,000 MG/100 ML BTL ONE (14:19)
[2019-03-27] MEDS ORDERED: Polyethylene Glycol 3350* 17 GM PACKET PO PRN (15:50)
[2019-03-27] MEDS ORDERED: diPHENhydraMINE IV* 50 MG/ML 1 ml VIAL (BENADRYL) IV PRN (15:50)
[2019-03-27] MEDS ORDERED: traZODone TAB* 50 MG TAB PO PRN (15:50)
[2019-03-27] MEDS ORDERED: Magnesium Hydroxide LIQ* 30 ML UDC PO PRN (15:50)
[2019-03-27] MEDS ORDERED: diPHENhydraMINE PO* 25 MG PO PRN (15:50)
[2019-03-27] MEDS ORDERED: traMADol TAB* 50 MG PO PRN (15:50)
[2019-03-27] MEDS ORDERED: Morphine INJ* 2 MG/ML 1 ML SYRINGE (TWO MG - NEW SYRINGE VERSION) IV PRN (15:50)
[2019-03-27] MEDS ORDERED: Ondansetron INJ* 2 MG/ML VIAL IV PRN (15:50)
[2019-03-27] MEDS ORDERED: oxyCODONE/Acetamin 5/325 MG* TAB PO PRN (15:50)
[2019-03-27] MEDS: fentaNYL* 50 MCG/ML 2 ML VIAL (100 MCG VIAL) IV PRN ×2 (15:51→16:08)
[2019-03-27] MEDS ORDERED: Fluticasone NASAL SPRAY 50MCG* 16 gm SPRAY BTL BOTH NARES PRN (16:02)
[2019-03-27] MEDS: Lactated Ringers 1000 ML Bag* 1,000 ML IV SCH (17:05)
--- NOTE | 2019-03-27 18:04 | OP ---
Operative Report - Blank - Operative Report Date of Operation: 03/27/19 Note: RAFFY XIONG 1965 Date of Surgery: 03/27/19 Nichole Suarez MD Credit Risk Specialist: Milana CULLEN did help throughout the procedure with preparation of the knee, wound retraction, manipulation of the knee, and wound closure. Anesthesiologist: Jesus Manuel Martin MD Anesthesia Type: Spinal Preoperative Diagnosis: Left severe degenerative osteoarthritis of the knee with valgus deformity Postoperative Diagnosis: As above Procedure Performed: Left Total Knee Arthroplasty Tourniquet time: 53 minutes Complications: None Specimen: Bone and cartilage from the left knee joint sent to pathology. Hardware Used: Cemented [employer] total knee hardware was used - For the femur a size 5 narrow oxinium left legion posterior stabilized femoral component , for the tibia a size 3 left alonso II tibial baseplate, for the insert a size 11mm 3-4 posterior stabilized articular polyethylene insert, and for the patella a size 29 3-peg all poly patella. Brief History/Indication: RAFFY XIONG was known in clinic and had a history of severe left knee pain and swelling. She failed conservative treatment with anti-inflammatories, pain pills, intra-articular injections and physical therapy. She elected to undergo left total knee arthroplasty due to continued pain and decreased quality of life. Radiographs showed severe end stage osteoarthritis of the knee with bone on bone contact. Informed consent was obtained from the patient. She understood the risks of surgery included but were not limited to: bleeding, infection, damage to nearby structures, intraoperative fracture, nerve palsy, failure of the hardware, early loosening, knee stiffness or loss of motion, anesthesia complications, stroke, heart attack , blood clot and . She wished to proceed. Intra-Operative Findings: Intraoperatively the patient was noted to have severe loss of cartilage in all 3 compartments of the knee. She had a 20 degree valgus deformity to start the case. Description of the Procedure: RAFFY XIONG was identified in the preanesthesia unit. Her left knee was marked as the correct operative side. Informed consent was signed and placed in the chart. The patient was taken to the operating room and placed under anesthesia without complication. A tam catheter was placed. A tourniquet was placed on the left thigh. The left lower extremity was prepped and draped in the usual sterile fashion. Preoperative time-out was made to correctly identify the patient, side and site. Appropriate intraoperative antibiotics were given within one hour of incision. Tourniquet was inflated. A midline incision was made and carried sharply down to the extensor mechanism. A new 10 blade was used to make a standard medial parapatellar arthrotomy. The patella was subluxed laterally. Electrocautery was used to dissect soft tissue off the superomedial tibia to the midsagittal plane. The knee was flexed up. The anterior horn of the lateral meniscus and the ACL were sharply incised. A drill was used to enter the distal femur. The intramedullary distal femoral cutting guide was pinned on the distal femur. The oscillating saw was used to make the distal femoral cut. The external rotation guide was pinned on the distal femur and the distal femur was sized to a size 5. The size 5 multi-cutting jig was pinned on the distal femur. The oscillating saw was used to make the appropriate 4 chamfer cuts. Next the PCL was completely released. The extramedullary tibial cutting guide was pinned on the proximal tibia and the oscillating saw was used to make the proximal tibial cut perpendicular to the mechanical axis of the tibia. The bone was carefully removed. The knee was brought out into full extension. The spacer block was placed and had excellent fit with the knee in full extension. The medial and lateral ligaments were well balanced. The flexion and extension gaps were well balanced. The knee was flexed up. Lamina die casting machine maintainer was placed both medially and laterally. Any remaining meniscus was removed with electrocautery. Curved osteotome was used to remove any posterior osteophytes. The tibial tray and drop carine were placed and confirmed a satisfactory tibial cut. The size 5 left narrow femoral trial was impacted onto the distal femur. This trial had excellent fit and stability. The box for the posterior stabilized implant was prepared using a box cut osteotome and a reamer. Next a tibial tray trial and 9 mm insert trial was placed. The knee was taken through a range of motion and had full extension to 130 degrees of flexion. Patellofemoral tracking was satisfactory. The patella was inverted and sized to a size 29. Three peg holes were drilled through the size 29 drill guide. The trial patella was placed and the knee was taken through a range of motion. There was satisfactory patellofemoral tracking. All trials were removed. The tibia was subluxed anteriorly and sized to a size 3. The proximal tibial was prepared with a size 3 keel punch. All bony cut surfaces were irrigated with sterile saline and dried. Final implants were cemented into place starting with the tibia, followed by the femur, and last the patella. A 11 mm insert trial was placed and the knee was brought into full extension. Tourniquet was turned down and the knee was copiously irrigated with sterile saline. Electrocautery was used to obtain meticulous hemostasis. Once the cement had fully cured, the insert trial was removed. Any excess cement was removed from around the hardware and capsule. Final insert chosen was a 11 mm posterior stabilized Alonso II articular insert size 3-4. Stability of the insert was checked and noted to be stable. The extensor mechanism was closed using number 1 vicryls. The rest of the incision was closed in a layered fashion using 0 and 2-0 vicryls. The skin was closed using 3-0 nylon suture. Sterile xeroform, 4x4s and webril were used to cover the incision. Itz wrap and cold pack were used to cover the dressings. The patients anesthesia was reversed without difficulty. She was taken to the PACU in stable condition. Intended weight-bearing will be as tolerated.
[2019-03-27] MEDS: oxyCODONE/Acetamin 5/325 MG* TAB PO PRN ×2 (19:27→23:49)
[2019-03-27] MEDS: Docusate CAP* 100 MG PO SCH (19:29)
[2019-03-27] MEDS: Magnesium Hydroxide LIQ* 30 ML UDC PO SCH (19:30)
[2019-03-27] MEDS: ceFAZolin 1 GM ADVAN(*) 1 GM in NS 0.9% 50 ML* 50 ML IVPB SCH (19:31)
[2019-03-27] MEDS: Cyclobenzaprine TAB* 10 MG PO PRN (20:58)
[2019-03-27] MEDS: Acetaminophen TAB* 325 MG PO SCH (22:15)
[2019-03-27] MEDS: Ondansetron ODT TAB* 4 MG PO PRN (22:39)
[2019-03-27] MEDS: oxyCODONE TAB* 5 MG TAB PO PRN (22:40)
[2019-03-28] MEDS: ceFAZolin 1 GM ADVAN(*) 1 GM in NS 0.9% 50 ML* 50 ML IVPB SCH ×2 (03:46→11:47)
[2019-03-28] MEDS: oxyCODONE/Acetamin 5/325 MG* TAB PO PRN ×4 (03:47→19:16)
[2019-03-28] MEDS: Acetaminophen TAB* 325 MG PO SCH ×3 (05:27→22:15)
[2019-03-28] MEDS: Lactated Ringers 1000 ML Bag* 1,000 ML IV SCH (05:46)
[2019-03-28] MEDS: Levothyroxine TAB* 112 MCG TAB PO SCH (05:46)
[2019-03-28] MEDS: oxyCODONE TAB* 5 MG TAB PO PRN ×3 (06:07→17:06)
[2019-03-28] MEDS: Cyclobenzaprine TAB* 10 MG PO PRN ×2 (06:13→15:16)
[2019-03-28 06:55] LABS: Hematocrit 34 % (35-47); Hemoglobin 10.9 g/dL (12.0-16.0); Mean Platelet Volume 7.6 fL (7.4-10.4); Platelet Count 333 10^3/uL (150-450)
[2019-03-28 07:24] LABS: BUN/Creatinine Ratio 15.2 (8-20); Calcium 9.5 mg/dL (8.6-10.3); EGFR African American 114.2 (>60); EGFR Non-African American 94.4 (>60); Potassium 3.8 mmol/L (3.5-5.0)
[2019-03-28] MEDS: Vitamin THERAPEUTIC TAB PO SCH (08:14)
[2019-03-28] MEDS: Pantoprazole TAB * 40 MG TAB PO SCH (08:14)
[2019-03-28] MEDS: Magnesium Hydroxide LIQ* 30 ML UDC PO SCH ×2 (08:15→20:47)
[2019-03-28] MEDS: Docusate CAP* 100 MG PO SCH ×2 (08:15→20:40)
[2019-03-28] MEDS: Apixaban* 2.5 MG TAB PO SCH ×2 (08:15→20:40)
[2019-03-28] MEDS: Ondansetron ODT TAB* 4 MG PO PRN ×2 (09:09→19:33)
[2019-03-28] MEDS ORDERED: Calcium Carbonate CHEW TAB* 500 MG (TUMS) PO PRN (17:05)
[2019-03-28] MEDS: HYDROmorphone INJ* 0.5 MG/0.5 ML SYRINGE IV SLOW PU PRN (20:40)
--- NOTE | 2019-03-28 23:31 | PN ---
Progress Note - Progress Note Date of Service: 03/28/19 SOAP: Subjective: Pt seen and examined at bedside. States has had a lot of pain. Report nausea. Denies CP, SOB, F/C. Vital Signs: Temp Pulse Resp BP Pulse Ox 98.8 F 81 18 149/68 97 03/28/19 20:07 03/28/19 20:07 03/28/19 21:53 03/28/19 20:07 03/28/19 20:07 Laboratory Last Values Hgb 10.9 g/dL (12.0-16.0) L 03/28/19 06:46 Hct 34 % (35-47) L 03/28/19 06:46 Plt Count 333 10^3/uL (150-450) 03/28/19 06:46 MPV 7.6 fL (7.4-10.4) 03/28/19 06:46 Sodium 139 mmol/L (135-145) 03/28/19 06:47 Potassium 3.8 mmol/L (3.5-5.0) 03/28/19 06:47 Chloride 104 mmol/L (101-111) 03/28/19 06:47 Carbon Dioxide 30 mmol/L (22-32) 03/28/19 06:47 Anion Gap 5 mmol/L (2-11) 03/28/19 06:47 BUN 10 mg/dL (6-24) 03/28/19 06:47 Creatinine 0.66 mg/dL (0.51-0.95) 03/28/19 06:47 Est GFR ( Amer) 114.2 (>60) 03/28/19 06:47 Est GFR (Non-Af Amer) 94.4 (>60) 03/28/19 06:47 BUN/Creatinine Ratio 15.2 (8-20) 03/28/19 06:47 Glucose 132 mg/dL (70-100) H 03/28/19 06:47 Calcium 9.5 mg/dL (8.6-10.3) 03/28/19 06:47 Objective: A&O x3, NAD Dressing C/D/I, Calves soft and nontender, No edema, NVI distally Assessment: 53 yo female s/p left TKA POD #1 Plan: OOB, PT/OT WBAT Pain control DVT Prophylaxis - Eliquis 2.5mg bid D/C home 03/29
[2019-03-29] MEDS: HYDROmorphone INJ* 0.5 MG/0.5 ML SYRINGE IV SLOW PU PRN (00:58)
[2019-03-29] MEDS: oxyCODONE/Acetamin 5/325 MG* TAB PO PRN ×2 (05:16→12:42)
[2019-03-29] MEDS: Cyclobenzaprine TAB* 10 MG PO PRN (05:27)
[2019-03-29] MEDS: Acetaminophen TAB* 325 MG PO SCH (05:59)
[2019-03-29] MEDS: Levothyroxine TAB* 112 MCG TAB PO SCH (06:04)
[2019-03-29 07:34] VITALS: BP 150/65
[2019-03-29 08:01] LABS: Hematocrit 34 % (35-47); Hemoglobin 11.1 g/dL (12.0-16.0); Mean Platelet Volume 7.6 fL (7.4-10.4); Platelet Count 334 10^3/uL (150-450)
[2019-03-29 08:02] LABS: ABS Basophils 0.1 10^3/ul (0-0.2); ABS Lymphocytes 1.4 10^3/ul (1.0-4.8); Eosinophil % 0.1 %; Hematocrit 34 % (35-47); Hemoglobin 10.9 g/dL (12.0-16.0); Lymphocyte % 9.1 %; Mean Corpuscular HGB Conc 33 g/dL (31-36); Mean Corpuscular Hemoglobin 27 pg (27-31); Mean Corpuscular Volume 81 fL (80-97); Mean Platelet Volume 7.6 fL (7.4-10.4); Platelet Count 326 10^3/uL (150-450); Red Blood Count 4.13 10^6 /uL (3.70-4.87); Red Cell Distribution Width 15 % (10-15); White Blood Count 15.6 10^3/uL (3.5-10.8)
[2019-03-29] MEDS: oxyCODONE TAB* 5 MG TAB PO PRN ×3 (08:20→11:55)
[2019-03-29] MEDS: Docusate CAP* 100 MG PO SCH (08:34)
[2019-03-29] MEDS: Magnesium Hydroxide LIQ* 30 ML UDC PO SCH (08:35)
[2019-03-29] MEDS: Apixaban* 2.5 MG TAB PO SCH (08:35)
[2019-03-29] MEDS: Vitamin THERAPEUTIC TAB PO SCH (08:35)
[2019-03-29] MEDS: Pantoprazole TAB * 40 MG TAB PO SCH (08:35)
--- NOTE | 2019-03-29 08:37 | PN ---
Progress Note - Progress Note Date of Service: 03/29/19 SOAP: Subjective: OOB to chair, moderate complaints of pain; denies SOB/ calf pain Objective: Vital Signs Temp Pulse Resp BP Pulse Ox 98.6 F 89 16 150/65 93 03/29/19 07:33 03/29/19 07:33 03/29/19 07:33 03/29/19 07:33 03/29/19 07:33 Laboratory Last Values WBC 15.6 10^3/uL (3.5-10.8) H 03/29/19 07:55 RBC 4.13 10^6 /uL (3.70-4.87) 03/29/19 07:55 Hgb 10.9 g/dL (12.0-16.0) L 03/29/19 07:55 Hct 34 % (35-47) L 03/29/19 07:55 MCV 81 fL (80-97) 03/29/19 07:55 MCH 27 pg (27-31) 03/29/19 07:55 MCHC 33 g/dL (31-36) 03/29/19 07:55 RDW 15 % (10-15) 03/29/19 07:55 Plt Count 326 10^3/uL (150-450) 03/29/19 07:55 MPV 7.6 fL (7.4-10.4) 03/29/19 07:55 Neut % (Auto) 83.6 % 03/29/19 07:55 Lymph % (Auto) 9.1 % 03/29/19 07:55 Bent % (Auto) 6.5 % 03/29/19 07:55 Eos % (Auto) 0.1 % 03/29/19 07:55 Baso % (Auto) 0.7 % 03/29/19 07:55 Absolute Neuts (auto) 13.0 10^3/ul (1.5-7.7) H 03/29/19 07:55 Absolute Lymphs (auto) 1.4 10^3/ul (1.0-4.8) 03/29/19 07:55 Absolute Monos (auto) 1.0 10^3/ul (0-0.8) H 03/29/19 07:55 Absolute Eos (auto) 0.0 10^3/ul (0-0.6) 03/29/19 07:55 Absolute Basos (auto) 0.1 10^3/ul (0-0.2) 03/29/19 07:55 Absolute Nucleated RBC 0.0 10^3/ul 03/29/19 07:55 Nucleated RBC % 0.0 03/29/19 07:55 Sodium 139 mmol/L (135-145) 03/28/19 06:47 Potassium 3.8 mmol/L (3.5-5.0) 03/28/19 06:47 Chloride 104 mmol/L (101-111) 03/28/19 06:47 Carbon Dioxide 30 mmol/L (22-32) 03/28/19 06:47 Anion Gap 5 mmol/L (2-11) 03/28/19 06:47 BUN 10 mg/dL (6-24) 03/28/19 06:47 Creatinine 0.66 mg/dL (0.51-0.95) 03/28/19 06:47 Est GFR ( Amer) 114.2 (>60) 03/28/19 06:47 Est GFR (Non-Af Amer) 94.4 (>60) 03/28/19 06:47 BUN/Creatinine Ratio 15.2 (8-20) 03/28/19 06:47 Glucose 132 mg/dL (70-100) H 03/28/19 06:47 Calcium 9.5 mg/dL (8.6-10.3) 03/28/19 06:47 incision: c/d; dressing changed PE: NVI Assessment: s/p left TKA Plan: 1) PT/OT- WBAT 2) Eliquis/SCD's for DVT prophylaxis 3) home today; f/u with Erick in 2 weeks
--- NOTE | 2019-03-29 09:44 | DS ---
DISCHARGE SUMMARY: DATE OF ADMISSION: 03/27/19 DATE OF DISCHARGE: 03/29/19 SURGEON: Nichole Suarez MD.* (DICTATED BY ALYSE DO) PRINCIPAL DIAGNOSIS: Left knee osteoarthritis. DISCHARGE DIAGNOSIS: Left knee osteoarthritis. DISCHARGE DISPOSITION: Discharged home in stable condition. HISTORY OF PRESENT ILLNESS: Ms. Fernandez is a 53-year-old female with severe end - stage osteoarthritis of the left knee. She has failed conservative treatment and elected to proceed with a left total knee arthroplasty. HOSPITAL COURSE: Ms. Fernandez was admitted electively to the hospital on and underwent a left total knee arthroplasty. She tolerated the procedure well. Postoperatively, she was placed on Eliquis twice a day for DVT prophylaxis. On postoperative day 1, her H and H was 10 and 34. On postop day 2, 11 and 34. At the time of discharge, she was afebrile. Her vital signs were stable and she was ambulating well. DISCHARGE MEDICATIONS: 1. Percocet 5/325 one to two tabs every 4 to 6 hours as needed for pain. 2. Dilaudid 2 mg tabs every 8 hours for breakthrough pain. 3. Flexeril 10 mg every 8 hours as needed for muscle spasms. 4. Colace 100 mg tabs, 2 to 3 tabs daily as needed for constipation. 5. Eliquis 2.5 mg every 12 hours for 30 days. 6. Flonase as needed. 7. Synthroid 112 mcg a day. 8. Protonix 40 mg a day. PHYSICAL EXAMINATION UPON DISCHARGE: She was afebrile. Her vital signs were stable. Her wound was clean and dry. She was ambulating well with therapy. She was able to dorsiflex and plantarflex with a 2+ dorsalis pedis pulse and intact sensation. DISCHARGE INSTRUCTIONS: She was discharged home. She was given Percocet for pain as well as Flexeril and Dilaudid 2 mg tabs every 8 hours for breakthrough pain. She was given Colace for constipation and Eliquis 2.5 mg every 12 hours for 30 days for DVT prophylaxis. Her dressing was changed prior to discharge. Will keep that new dressing on until Sunday. At that time, she can take a shower, letting soap and water run over the incision, do not submerge in water. VNS and home physical therapy have been set up which will start next week. She will follow up with Dr. Suarez in 2 weeks. ALYSE DO [id number]/[facility] #: [id number] KER[place]
== END 2019-03-29 13:00 | disposition home health service (06) | DRG 302 ==
LOC: AA 10:29 → SSU 15:50
PROVIDERS: ADMIT Orthopaedic Surgery Adult Reconstructive Orthopaedic Surgery; ATTEND Orthopaedic Surgery Adult Reconstructive Orthopaedic Surgery
PROC: 0SRD069 Replacement of Left Knee Joint with Oxidized Zirconium on Polyethylene Synthetic Substitute, Cemented, Open Approach (ICD-10-PCS; principal; 2019-03-27 13:00)
DX: M17.12 Unilateral primary osteoarthritis, left knee (principal); Z68.41 Body mass index [BMI] 40.0-44.9, adult; E03.9 Hypothyroidism, unspecified; K21.9 Gastro-esophageal reflux disease without esophagitis; G47.30 Sleep apnea, unspecified; Z96.651 Presence of right artificial knee joint; M25.462 Effusion, left knee; M21.062 Valgus deformity, not elsewhere classified, left knee; E78.00 Pure hypercholesterolemia, unspecified; E66.9 Obesity, unspecified; M25.762 Osteophyte, left knee; Z79.890 Hormone replacement therapy; Z79.899 Other long term (current) drug therapy; Z88.5 Allergy status to narcotic agent; Z88.2 Allergy status to sulfonamides; Z88.0 Allergy status to penicillin; Z88.1 Allergy status to other antibiotic agents
CPT/HCPCS: 36415; 80048; 85014; 85018; 85025; 85049; 88305; 88311; A9270-GY; C1776; J0690; J1170; J2250; J2704; J2795; J3010; J3490; J8540